=== PATIENT | male | born 1980 | race Caucasian/White ===

== ENCOUNTER 2023-04-19 01:34 | Inpatient (IN) | payer OTHER, SELFPAY ==
[2023-04-18 16:42] VITALS: BP 148/95
--- NOTE | 2023-04-18 22:03 | ED.GENMED ---
History of Present Illness
General
Chief Complaint: Nose Bleed
Source: patient
Exam Limitations: none
Time Seen by Provider: 04/18/23 22:01
Nursing documentation reviewed up to this point in time: agreed with
Travel History
Have you had any contact with someone who has COVID-19?: No
Do you have any symptoms of coronavirus? Fever > 100 degrees, chills, cough, shortness of breath, sore throat, loss of taste or smell, muscle aches, or headache?: No
History of Present Illness
History of Present Illness:
42-year-old male presents emergency department due to a nosebleed that started at 8 AM. He drinks a lot every day. He felt he was get a pass out when he was in a chair.
Past History
Past History
ED Past Medical History: None
ED Past Surgical History: Orthopedic (Left hand surgery, left ankle surgery)
Social History
Tobacco: Smoker
Alcohol: Chronic alcoholic
Drug: None
Living: with family
Employment: Employed
Review of Systems
Review of Systems
Allergies reviewed?: Yes
All Other Systems: Not applicable
Constitutional: Reports no symptoms
EENT: Reports other (nosebleed)
Respiratory: Reports no symptoms
Cardiac: Reports no symptoms
ABD/GI: Reports no symptoms
: Reports no symptoms
Musculoskeletal: Reports no symptoms
Skin: Reports no symptoms
Neurological: Reports dizzy
Endocrine: Reports no symptoms
Hematologic/Lymphatic: Reports no symptoms
Psychiatric: Reports no symptoms
Phy Exam
General Physical Exam
General Presentation: well appearing
ENT Exam
ENT Exam: other (bilateral hemorrhage)
Cardiovascular Exam
Cardiovascular Exam: regular rate/rhythm, no edema, no murmur and normal peripheral pulses
Pulmonary Exam
Pulmonary Exam: lungs clear and no crackles
Gastrointestinal Exam
Gastrointestinal Exam: non tender, soft and non distended
Neurological Exam
Neurological Exam: alert and oriented x3
Course
Orders/Labs/Results
Orders:
Orders
04/18/23 16:52
Electrocardiogram (*1) Urgent
Reason for Study: Palpitations
EKG- Treatment ONCE
04/18/23 22:27
IV Insert/Care/Rem.- Treatment PRN
04/18/23 22:34
Type+Screen Urgent
Alcohol Urgent
Complete Blood Count/With Diff Urgent
Comprehensive Metabolic Panel Urgent
PTT Urgent
Prothrombin Time Urgent
Abnormal Lab Results
04/18/23
22:34
WBC 11.7 H 10^3/uL
(4.8-10.8)
RBC 3.57 L 10^6/uL
(4.70-6.10)
Hct 36.4 L %
(39.0-52.0)
MCV 102.0 H fL
(80.0-94.0)
MCH 37.3 H pg
(27.0-31.0)
Abs Immat Gran (auto) 0.1 H 10^3/uL
(0-0.05)
Absolute Neuts (auto) 7.7 H 10^3/uL
(1.4-6.5)
Absolute Monos (auto) 0.8 H 10^3/uL
(0.1-0.6)
Sodium 132 L mmol/L
(135-145)
Carbon Dioxide 20 L mmol/L
(22-30)
Total Bilirubin 1.4 H mg/dl
(0.2-1.3)
AST 75 H U/L
(17-59)
ALT 60 H U/L
(0-50)
Alkaline Phosphatase 141 H U/L
(38-126)
04/18/23 22:34
04/18/23 22:34
Vital Signs
Initial and Last Documented VS:
Initial Vital Signs
Pulse Resp BP Pulse Ox
86 18 148/95 99
04/18/23 16:42 04/18/23 16:42 04/18/23 16:42 04/18/23 16:42
Last Documented Vital Signs
Pulse Resp BP Pulse Ox
86 18 148/95 99
04/18/23 16:42 04/18/23 16:42 04/18/23 16:42 04/18/23 16:42
Procedures
Nosebleed
Drug treatment: Lidocaine and Epinephrine
Treatment: Epistat nasal catheter
Post treatment bleeding: none- good control
MDM/Problems Addressed
Differential Diagnosis Includes:
near syncope, alcohol withdrawal, vomiting, epistaxis
MDM/Problems Addressed:
42 yo male with bilateral epistaxis, near syncope. EKG with PVCs, otherwise normal. hemorrhage controlled with bilateral packing. Admit for further evaluation
Chronic conditions affecting care: Other (alcoholism)
Acute Exacerbation and/or Progression of Chronic Illness: Other (alcoholism)
*Pulse Oximetry
Patient hypoxic: no
*EKG
Interpreted by ED Provider?: Yes
EKG Intrepretation Date: 04/18/23
EKG Intrepretation Time: 16:56
Interpretation: abnormal
Comparison EKG: no changes
Heart Rate: 77
Rate: normal
Rhythm: sinus and PVC's
Thomas: normal axis
Interval: normal interval
QRS Pattern: normal QRS
Ischemia: no ischemia
*Radio Repairman Interpretation
Rate: Radio Repairman- N/A
*Critical Care Note
Total Time (30-74mins, 75-104mins- exclusive of procedures): Not Applicable
Data Reviewed
Review of Other/Old Records Reveals: Labs
Source: records (prior labs show hb 15.5 03/15/23)
Patient Management
Social determinants of health affecting care: Living situation and Substance abuse
Discussion with other providers: Hospitalist and Analysis Evaluator (ENT Dr. Torres)
Escalation/DeEscalation of care consider admission/obs:
admit indicated
ED Attending Note
-
Portions of this chart may have been created with voice recognition software.� Occasional wrong word or��sound alike� substitutions may have occurred due to the inherent limitations of voice recognition software.
Discharge Plan
Departure
Patient Disposition: Admit
Date of Disposition: 04/18/23
Time of Disposition: 23:45
Admit to: Telemetry
Presentation/result/management discussed w/ accepting MD/DO: Hospitalist
Patient with high blood pressure during this ER visit?: Yes
Condition: Fair
Discharge Problem:
Epistaxis, Near syncope, Alcoholism
Prescriptions:
No Action
Fiber Gummies
2 gummy PO DAILYPRN PRN (Reason: fiber supplement)
Referrals:
Kaden Ramon MD [Family Provider] -
Interventions
Interventions:
*Risk Screen - Suicide Last Done: 04/18/23 20:08
*General Assessment Last Done: 04/18/23 20:08
*Neglect/Abuse Screening Last Done: 04/18/23 20:08
ED- Fall Risk Assessment Last Done: 04/18/23 20:08
ED-EENT Assessment Last Done: 04/18/23 20:08
[2023-04-18 22:39] LABS: % Basophils 0.6 % (0-2); % Eosinophils 0.8 % (0-6); % Immature Granulocytes 0.4 % (0-0.5); % Lymphocytes 25.7 % (20.5-51.1); % Monocytes 6.9 % (1.7-9.3); % Neutrophils 65.6 % (42.2-75.2); Absolute Basophils 0.1 10^3/uL (0-0.2); Absolute Eosinophils 0.1 10^3/uL (0-0.7); Absolute Immature Granulocytes 0.1 10^3/uL (0-0.05); Absolute Monocytes 0.8 10^3/uL (0.1-0.6); Absolute Neutrophils 7.7 10^3/uL (1.4-6.5); Hematocrit 36.4 % (39.0-52.0); Hemoglobin 13.3 g/dL (13.0-18.0); Mean Corp Hgb Conc. 36.5 g/dL (33.0-37.0); Mean Corpuscular Hgb 37.3 pg (27.0-31.0); Mean Platelet Volume 8.8 fL (7.4-10.4); Nucleated Red Blood Cells % 0 % (-); Platelet Count 223 10^3/uL (130-400); Red Blood Cell Count 3.57 10^6/uL (4.70-6.10); Red Cell Dist. Width 13.4 % (11.5-14.5); White Blood Cell Count 11.7 10^3/uL (4.8-10.8)
[2023-04-18 22:50] LABS: INR 1.04; PT 13.8 Sec (11.4-14.6)
[2023-04-18 22:51] LABS: APTT 27.9 Sec (23.4-35.0)
[2023-04-18 22:55] LABS: ALT (SGPT) 60 U/L (0-50); AST (SGOT) 75 U/L (17-59); Albumin 4.4 g/dl (3.5-5.0); Alkaline Phosphatase 141 U/L (38-126); Blood Urea Nitrogen 14 mg/dl (9-20); Calcium 9.2 mg/dl (8.4-10.2); Carbon Dioxide 20 mmol/L (22-30); Chloride 103 mmol/L (98-107); Glucose 77 mg/dl (70-99); Potassium 3.8 mmol/L (3.5-5.1); Sodium 132 mmol/L (135-145); Total Bilirubin 1.4 mg/dl (0.2-1.3); Total Protein 7.1 g/dl (6.3-8.2); eGFR > 60.00
[2023-04-18 22:58] LABS: Alcohol None Detected
[2023-04-19] VITALS (20 sets, daily range): BP systolic 118–176; BP diastolic 75–105; BMI 20.8; BMI 20.9
--- NOTE | 2023-04-19 01:05 | HPS.HSE ---
Family Physician
-
Family Physician: Kaden Ramon
Chief Complaint
-
Bloody nose
History of Present Illness
Patient is a 42y M with no significant PMH who presents to ED complaining of bloody nose. Patient states that he was getting a shower this evening when he had a paroxysm of cough and then 'threw up'. He states that this was bloody. He then
began to have bleeding from the nose - both sides - and was unable to stop / control the bleeding. Patient notes that he has had nose bleeds in the past - but it is not a frequent occurrence. He denies any recent trauma, injury, etc.
He presented to the ED for further evaluation and had nasal tamponade devices placed in each nostril. There is some residual oozing - specifically from the R nostril.
Patient denies any other source of bleeding.
He has no chest pain, abdominal pain, fevers / chills, etc.
Patient states that he drinks 'too much'. He states that he eason 4-6 drinks of hard liquor every day on average.
His last drink was a small sip this AM.
He also notes that he takes Advil 800mg tabs multiple times a day. He states that this is for chronic neck pain.
Medical History
Past Medical History
Past Medical History: Reports Other
Additional Past Medical History:
Alcohol Use Disorder
Chronic Cervical Pain
Past Surgical History: Reports Other
Additional Past Surgical History:
Left Wrist ORIF with Hardware
Social History
Tobacco: Smoker (Current every day smoker.)
Alcohol: Daily (4-6 hard alcohol drinks every day. Last drink 04/18 AM.)
Drug: Marijuana (Occasional)
Family History
Family History: Not pertinent
Allergies / Home Medications
Allergies reflects when Allergies were last updated in [employer].
Home Medications with original date entered in [employer]
Allergy/Medication List:
Allergies
Allergy/AdvReac Type Severity Reaction Status Date / Time
No Known Allergies Allergy Unverified 04/18/23 16:42
Home Medications
Fiber Gummies 2 gummy PO DAILYPRN PRN fiber supplement 03/15/23
Review of Systems
-
History Source: Patient
A 12 point ROS was completed and negative except as noted: Yes
Constitutional: Denies Fever or Chills
EENT: Denies Sore Throat
Respiratory: Reports Cough and Hemoptysis; Denies Trouble Breathing
Cardiac: Denies Chest Pain, Diaphoresis or Palpitations
Abdomen/GI: Reports Nausea and Vomiting; Denies Abdominal Pain, Bloody Stools or Black Stools
: Denies Dysuria or Frequency
Musculoskeletal: Denies Joint Pain, Joint Swelling or Edema
Neurological: Reports Dizzy; Denies Headache, Weakness or Numbness
Hematologic/Lymphatic: Reports Bleeding
Psych: Denies Depression or Anxiety
Physical Exam
Vital Signs
Vital Signs
Pulse Resp BP Pulse Ox
106 16 147/95 94
04/19/23 00:12 04/19/23 00:12 04/19/23 00:12 04/19/23 00:12
Physical Exam
General: Other (42y M in mild distress due to nasal packing discomfort.)
HEENT: Other (Bilateral nostrils with tamponade devices in place. Some blood trickling from the R nostril anteriorly. Posterior oropharyngeal blood - but does not appear to be actively bleeding.)
Respiratory: Clear; No Wheezes, Rales or Rhonchi
Cardiac: S1/S2 and Regular Rhythm; No Murmur
GI: Soft, Non Tender, Non Distended and Normal Bowel Sounds
Musculoskeletal: No Clubbing, No Cyanosis and No Edema
Neuro: AO x 3
Laboratory Results
-
04/18/23 22:34
04/18/23 22:34
Laboratory Results
PT 13.8 Sec (11.4-14.6) 04/18/23 22:34
INR 1.04 04/18/23 22:34
APTT 27.9 Sec (23.4-35.0) 04/18/23:34
Total Bilirubin 1.4 mg/dl (0.2-1.3) H 04/18/23 22:34
AST 75 U/L (17-59) H 04/18/23 22:34
ALT 60 U/L (0-50) H 04/18/23 22:34
Alkaline Phosphatase 141 U/L (38-126) H 04/18/23 22:34
Impression/Plan
-
A/P: Patient is a 42y M with PMH significant for alcohol use disorder who presents to ED for evaluation of nose bleed.
Severe Epistaxis - Bilateral
- Admit for further evaluation and treatment. Keep on monitored bed for the night.
- Maintain nasal packing overnight.
- Application of ice / cold to area.
- Follow for any significant breakthrough bleeding.
- Adjust air in balloon devices if needed to maintain hemostasis.
- ENT evaluation in the AM for additional evaluation / possible endoscopic exam and cautery.
- Empiric abx coverage for now / while packing in place.
- No lab evidence of coagulopathy - though suspect some degree of platelet dysfunction on basis of chronic alcoholism.
- Monitor for any other sources of bleeding.
- Follow H&H for any changes.
Alcohol Use Disorder
- Last drink was early this AM. Current alcohol level is 0.
- Will monitor on MSAS protocol, but seems very low risk for development of withdrawal symptoms.
DVT Prophylaxis: SCDs
Code Status: Full
[2023-04-19] MEDS: NSS 1000 IV ×3 (02:21→20:04)
[2023-04-19] MEDS: UNASYN IV ×4 (03:29→20:46)
[2023-04-19] MEDS: PROTONIX 250 IV (03:34)
[2023-04-19 06:17] LABS: Hematocrit 32.2 % (39.0-52.0); Hemoglobin 11.4 g/dL (13.0-18.0); Mean Corp Hgb Conc. 35.4 g/dL (33.0-37.0); Mean Corpuscular Hgb 37.7 pg (27.0-31.0); Mean Corpuscular Volume 106.6 fL (80.0-94.0); Mean Platelet Volume 9.2 fL (7.4-10.4); Platelet Count 181 10^3/uL (130-400); Red Blood Cell Count 3.02 10^6/uL (4.70-6.10); Red Cell Dist. Width 13.2 % (11.5-14.5); White Blood Cell Count 8.8 10^3/uL (4.8-10.8)
[2023-04-19 06:32] LABS: Blood Urea Nitrogen 18 mg/dl (9-20); Calcium 8.6 mg/dl (8.4-10.2); Carbon Dioxide 21 mmol/L (22-30); Chloride 104 mmol/L (98-107); Estimated Creatinine Clearance > 125 ml/min; Glucose 73 mg/dl (70-99); Potassium 3.7 mmol/L (3.5-5.1); Sodium 133 mmol/L (135-145); eGFR > 60.00
[2023-04-19] MEDS: THIAMINE INJECTION 200 MG IV ×2 (08:34→20:04)
[2023-04-19] MEDS: FOLVITE 1 MG PO (08:57)
--- NOTE | 2023-04-19 11:14 | W.PN.HOSP.TC ---
Assessment / Plan
Assessment / Plan
42y M with PMH significant for alcohol use disorder who presents to ED for evaluation of nose bleed.
1. Severe Epistaxis - Bilateral
�- Admit for further evaluation and treatment.� Keep on monitored bed for the night.
�- Maintain nasal packing overnight.
�- Application of ice / cold to area.
�- Follow for any significant breakthrough bleeding.
�- Adjust air in balloon devices if needed to maintain hemostasis.
�- ENT evaluation in the AM for additional evaluation / possible endoscopic exam and cautery.
�- Empiric abx coverage for now / while packing in place.
�- No lab evidence of coagulopathy - though suspect some degree of platelet dysfunction on basis of chronic alcoholism.
�- Monitor for any other sources of bleeding.
�- Follow H&H for any changes.
Alcohol Use Disorder
�- Last drink was early this AM.� Current alcohol level is 0.
�- Will monitor on MSAS protocol, but seems very low risk for development of withdrawal symptoms.
DVT Prophylaxis:� SCDs
Code Status:� Full
Subjective/Interval History
-
Date of Service: April 19, 2023
Objective Data
-
Labs:
Laboratory Results
04/19/23 04/19/23 04/19/23
01:49 02:08 06:10
WBC 8.8
Hgb Cancelled 12.0 L 11.4 L
Hct Cancelled 34.0 L 32.2 L
Plt Count 181
Sodium 133 L
Potassium 3.7
Chloride 104
Carbon Dioxide 21 L
BUN 18
Creatinine 0.6 L
Glucose 73
Calcium 8.6
04/19/23 04/19/23 04/19/23
08:00 11:12 20:00
WBC
Hgb Pending Pending Pending
Hct Pending Pending Pending
Plt Count
Sodium
Potassium
Chloride
Carbon Dioxide
BUN
Creatinine
Glucose
Calcium
Vital Signs:
Vital Signs
Pulse Resp BP Pulse Ox
94 20 149/105 98
04/19/23 10:00 04/19/23 08:30 04/19/23 10:00 04/19/23 10:00
[2023-04-19] MEDS: DILAUDID 0.5 MG IV ×2 (11:22→16:48)
[2023-04-19 11:32] LABS: Hematocrit 31.5 % (39.0-52.0); Hemoglobin 11.4 g/dL (13.0-18.0)
--- NOTE | 2023-04-19 11:54 | CON.MD ---
Consultation - Medical
-
Patient patient seen and evaluated at the bedside.
Full consult dictated.
A/Q-9-yapf-old male with epistaxis.
-Patient with spontaneous epistaxis yesterday after sneezing.
-Unable to stop at home.
-No previous history of epistaxis.
-Packed in ER with balloons bilaterally.
-Bleeding seems controlled now.
-Would recommend continuing packing for 24 hours.
-Plan on removing packing tomorrow in a.m.
-Can give patient pain medicine for comfort as needed.
-Call if bleeding worsens.
--- NOTE | 2023-04-19 12:13 | CON.GI ---
Consultation
-
Date/Time Consultation Requested: 04/19/2022
Date/Time Consultation Performed: 04/19/2022
Performing Provider: Sandor Reyes
Reason for Consultation: possible GI bleed
Medical History
Chief Complaint / HPI
Chief Complaint: possible GI bleed
History of Present Illness:
Patient is a 42-year-old male with no significant medical history presents with epistaxis. He reports that he sneezed and vomited almost at the same time which contained significant mount of blood. After sneezing he started having nosebleed as
well. After arriving to ER he also had melena. Never had similar symptoms before. He does drink significantly, about 2 large alcoholic drink daily. He also has been taking NSAID medication for his neck pain daily. Never had Endo eval before.
He denies abdominal pain currently.
Past Medical History
Past Medical History: Other
Past Surgical History: Other
Social History
Tobacco: Smoker
Alcohol: Daily
Allergies / Home Medications
Allergy/AdvReac Type Severity Reaction Status Date / Time
No Known Allergies Allergy Unverified 04/18/23 16:42
Medication Instructions Recorded
Fiber Gummies 2 gummy PO DAILYPRN PRN fiber 03/15/23
supplement
Review of Systems
Vital Signs
Pulse Resp BP Pulse Ox
90 20 154/91 98
04/19/23 11:15 04/19/23 08:30 04/19/23 11:00 04/19/23 11:15
Physical Exam
Exam
General: Well Developed and Well Nourished
HEENT: Normocephalic
Respiratory: Clear
Cardiac: S1/S2
GI: Soft, Non Tender, Non Distended and Normal Bowel Sounds
Results
WBC 8.8 10^3/uL (4.8-10.8) 04/19/23 06:10
Hgb 11.4 g/dL (13.0-18.0) L 04/19/23 11:12
Hct 31.5 % (39.0-52.0) L 04/19/23 11:12
MCV 106.6 fL (80.0-94.0) H 04/19/23 06:10
Plt Count 181 10^3/uL (130-400) 04/19/23 06:10
Absolute Neuts (auto) 7.7 10^3/uL (1.4-6.5) H 04/18/23 22:34
PT 13.8 Sec (11.4-14.6) 04/18/23 22:34
INR 1.04 04/18/23 22:34
APTT 27.9 Sec (23.4-35.0) 04/18/23 22:34
Sodium 133 mmol/L (135-145) L 04/19/23 06:10
Potassium 3.7 mmol/L (3.5-5.1) 04/19/23 06:10
Chloride 104 mmol/L (98-107) 04/19/23 06:10
Carbon Dioxide 21 mmol/L (22-30) L 04/19/23 06:10
BUN 18 mg/dl (9-20) 04/19/23 06:10
Creatinine 0.6 mg/dL (0.7-1.3) L 04/19/23 06:10
Calcium 8.6 mg/dl (8.4-10.2) 04/19/23 06:10
Total Bilirubin 1.4 mg/dl (0.2-1.3) H 04/18/23 22:34
AST 75 U/L (17-59) H 04/18/23 22:34
ALT 60 U/L (0-50) H 04/18/23 22:34
Alkaline Phosphatase 141 U/L (38-126) H 04/18/23 22:34
Diagnostic Image Results:
Prior GI Procedures:
EGD:
Colonoscopy:
Assessment / Plan
-
Patient is a 42-year-old male with no significant medical history except for alcohol use who presents with epistaxis and also possible upper GI bleed.
Impression / Rec:
1. Possible UGIB - Patient's history is unclear as she reports that his bleeding started when he sneezed and vomited almost at the same time. She reports vomiting bloody content. He also reports melena in ER. He does have significant risk factor
for upper GI bleed including alcohol abuse and daily NSAID use. He is hemodynamically stable and Hgb remains stable (13.3 on admission and 11.4 for last 6 hours). Currently on PPI infusion. Will plan for Endo eval tomorrow. N.p.o. after midnight.
Total Time Spent with Patient (in minutes): 55
-
-
Thank you for consultation and allowing me to participate in the patient's care. Please call the external relations director GI physician during the after hours with any questions or concerns.
[2023-04-19] MEDS: TYLENOL 650 MG PO (14:26)
--- NOTE | 2023-04-19 16:03 | W.PN.HOSP.TC ---
Today's Communication/Plan
-
NPO after MN
See notes from ENT and GI
Assessment / Plan
Assessment / Plan
42y M with PMH significant for alcohol use disorder who presents to ED for evaluation of nose bleed.
1. Severe Epistaxis - Bilateral
� - Maintain nasal packing
� - Application of ice / cold to area.
� - Follow for any significant breakthrough bleeding.
� - Adjust air in balloon devices if needed to maintain hemostasis.
� - ENT evaluation with / possible endoscopic exam and cautery. ENT recommended:
'Would recommend continuing packing for [another] 24 hours.
-Plan on removing packing tomorrow in a.m.
-Can give patient pain medicine for comfort as needed.
-Call if bleeding worsens.'
� - Empiric abx coverage for now / while packing in place.
�- No lab evidence of coagulopathy - though suspect some degree of platelet dysfunction on basis of chronic alcoholism.
� - Monitor for any other sources of bleeding.
� - Follow H&H for any changes.
2. Alcohol Use Disorder
�- Last drink was early this AM.� Current alcohol level is 0.
� - Will monitor on MSAS protocol, but seems very low risk for development of withdrawal symptoms.
3. Possible UGIB. Pt seen by GI. GI states:
'- Patient's history is unclear as she reports that his bleeding started when he sneezed and vomited almost at the same time.�
He reports vomiting bloody content.� He also reports melena in ER.� He does have significant risk factor for upper GI bleed including alcohol abuse and daily NSAID use.�
He is hemodynamically stable and Hgb remains stable (13.3 on admission and 11.4 for last 6 hours).� Currently on PPI infusion.�
Will plan for Endo eval tomorrow.� N.p.o. after midnight.'
DVT Prophylaxis:� SCDs
Code Status:� Full
Anticipated Discharge: 24 - 48 hours
Subjective/Interval History
-
Date of Service: April 19, 2023
Patient states his nose feels more swollen and is still 'wet.'
Objective Data
-
Labs:
Laboratory Results
04/19/23 04/19/23 04/19/23
06:10 08:00 11:12
WBC 8.8
Hgb 11.4 L Cancelled 11.4 L
Hct 32.2 L Cancelled 31.5 L
Plt Count 181
Sodium 133 L
Potassium 3.7
Chloride 104
Carbon Dioxide 21 L
BUN 18
Creatinine 0.6 L
Glucose 73
Calcium 8.6
Vital Signs:
Vital Signs
Temp Pulse Resp BP Pulse Ox
98.7 F 81 18 155/90 99
04/19/23 13:50 04/19/23 15:41 04/19/23 13:50 04/19/23 15:41 04/19/23 13:50
Review of Systems
-
History Source: Patient
All other systems: Reviewed and negative
Physical Exam
-
General: Well Developed, Well Nourished, No Apparent Distress and Pain
HEENT: Ears Appear Normal
Respiratory: Clear to Auscultation
Cardiac: Regular Rhythm and S1/S2
GI: Soft, Nontender and Nondistended
Musculoskeletal: No Clubbing, No Cyanosis and No Edema
Skin: Warm and Dry; Negative Rash
Neuro: Awake, Alert, Oriented and AO x 3
Psych: Calm
Data Reviewed
-
Labs: Labs Reviewed by me
--- NOTE | 2023-04-19 16:07 | PTCARENOTE ---
Dr. Tomas made aware pt. HR increased to 150s-160s when ambulating to the bathroom and pt. with c/o feeling bleeding dripping in his throat. This nurse offered zofran to pt. for c/o nausea, pt. refused at this time. Will continue to monitor.
[2023-04-19] MEDS: NSS IV (16:52)
--- NOTE | 2023-04-19 16:52 | PTCARENOTE ---
Pt. c/o pain at this time. Pain medication given as ordered. Pt. resting in bed at this time, HR 102, b/p 152/98. Dr. Iverson made aware. No new orders at this time. Will continue to monitor and report on pt.
--- NOTE | 2023-04-19 18:45 | PTCARENOTE ---
Dr. Guevara made aware pt. is wiping nose with a ni for bright red blood and sitting on the side of the bed pt. HR in the 150s. This nurse confirmed with Dr. Guevara IMU order.
--- NOTE | 2023-04-19 19:00 | PTCARENOTE ---
Pt. updated with plan to be transferred to IMU. Pt. resting in bed comfortably at this time.
--- NOTE | 2023-04-19 19:10 | PTCARENOTE ---
Report called to IMU RNMimi.
--- NOTE | 2023-04-19 19:50 | PTCARENOTE ---
Received pt as a transfer from 4th floor. Pt AAOx3; c/o pain in nose with some post nasal drip. Still actively bleeding from nose. On a CLD until midnight for endoscopy in the AM. Dark green/black foamy stool. Heme test positive. No c/o nausea
or vomiting at this time. BP 147/97 HR 110 at rest and increases to 150s-170s when ambulatory. Pt resting comfortably in bed with callbell in reach.
[2023-04-19 21:08] LABS: Hematocrit 27.9 % (39.0-52.0); Hemoglobin 10.1 g/dL (13.0-18.0)
[2023-04-20] VITALS (16 sets, daily range): BP systolic 18–166; BP diastolic 70–99
[2023-04-20] MEDS: UNASYN IV ×4 (03:03→19:59)
[2023-04-20] MEDS: NSS 1000 IV ×3 (03:03→17:46)
[2023-04-20 04:04] LABS: Hematocrit 24.2 % (39.0-52.0); Hemoglobin 8.7 g/dL (13.0-18.0)
[2023-04-20] MEDS: PROTONIX 250 IV (04:43)
[2023-04-20] MEDS: FOLVITE 1 MG PO (08:45)
[2023-04-20] MEDS: THIAMINE INJECTION 200 MG IV ×2 (08:45→19:58)
[2023-04-20 09:31] LABS: Hematocrit 21.1 % (39.0-52.0); Hemoglobin 7.6 g/dL (13.0-18.0)
[2023-04-20 09:52] LABS: ALT (SGPT) 26 U/L (0-50); AST (SGOT) 28 U/L (17-59); Albumin 2.9 g/dl (3.5-5.0); Alkaline Phosphatase 79 U/L (38-126); Blood Urea Nitrogen 27 mg/dl (9-20); Calcium 7.9 mg/dl (8.4-10.2); Carbon Dioxide 24 mmol/L (22-30); Chloride 107 mmol/L (98-107); Estimated Creatinine Clearance > 125 ml/min; Glucose 96 mg/dl (70-99); Potassium 3.5 mmol/L (3.5-5.1); Sodium 133 mmol/L (135-145); Total Protein 5.1 g/dl (6.3-8.2); eGFR > 60.00
[2023-04-20] MEDS: PROTONIX 40 MG PO (11:54)
--- NOTE | 2023-04-20 13:01 | W.PN.HOSP.TC ---
Addendum entered and electronically signed by Yared Agarwal MD 04/20/23 15:04:
drinks fireball shots/rum-drinks everyday-not been sober for long time.
updated spouse over the phone in details.
Original Note:
Today's Communication/Plan
-
PPI p.o.
IV antibiotic
Monitor heart rate
Beta-rosendo
Assessment / Plan
Assessment / Plan
42y M with PMH significant for alcohol use disorder who presents to ED for evaluation of nose bleed.
Severe Epistaxis - Bilateral
-Maintain nasal packing
-Application of ice / cold to area.
-Follow for any significant breakthrough bleeding.
-Adjust air in balloon devices if needed to maintain hemostasis.
-ENT evaluation with / possible endoscopic exam and cautery. ENT recommended:
- Empiric abx coverage for now / while packing in place.
-No lab evidence of coagulopathy - though suspect some degree of platelet dysfunction on basis of chronic alcoholism.
-Monitor for any other sources of bleeding.
-Follow H&H for any changes.
Alcohol Use Disorder
Transaminitis secondary to above-resolved
- Last drink was GLUE SPRAYER.
- Will monitor on MSAS protocol
Probably aspirated blood from epistaxis
-He reports vomiting bloody content. He also reports melena in ER. He does have significant risk factor for upper GI bleed including alcohol abuse and daily NSAID use.
-trend h.h. s/p PPI infusion.
-s/p EGD with Small superficial esophageal ulcer-doubt it is source of bleeding per GI
-ppi daily
-started on diet
-Sinus tachycardia likely multifactorial in the setting of blood loss anemia from recent access versus alcohol use disorder, dehydration
-Continue aggressive IV fluid resuscitation
-Trial low-dose Lopressor
Acute blood loss anemia multifactorial
-Transfuse as needed for less than 7 hemoglobin
DVT Prophylaxis: SCDs
Code Status: Full
If heart rate improves transfer to telemetry
Anticipated Discharge: 24 - 48 hours
Subjective/Interval History
-
Date of Service: April 20, 2023
states of intermittent mild epitaxis
remains sinus tach
Objective Data
-
Labs:
Laboratory Results
04/20/23 04/20/23
03:11 09:19
Hgb 8.7 L 7.6 L
Hct 24.2 L 21.1 L
Sodium 133 L
Potassium 3.5
Chloride 107
Carbon Dioxide 24
BUN 27 H
Creatinine 0.5 L
Glucose 96
Calcium 7.9 L
Total Bilirubin 1.0
AST 28
ALT 26
Alkaline Phosphatase 79
Vital Signs:
Vital Signs
Temp Pulse Resp BP Pulse Ox
98.9 F 120 16 123/89 99
04/20/23 11:00 04/20/23 12:00 04/20/23 12:00 04/20/23 12:00 04/20/23 12:00
I&O
04/19/23 04/20/23 04/21/23
06:59 06:59 06:59
Intake Total 1110 / 1110
Balance 1110 / 1110
Physical Exam
-
General: Well Developed, Well Nourished, No Apparent Distress and Pain
HEENT: Ears Appear Normal
Respiratory: Clear to Auscultation
Cardiac: Regular Rhythm, S1/S2 and Tachycardic
GI: Soft, Nontender and Nondistended
Musculoskeletal: No Clubbing, No Cyanosis and No Edema
Skin: Warm and Dry; Negative Rash
Neuro: Awake, Alert, Oriented and AO x 3
Psych: Calm
Data Reviewed
-
Total Time Spent with Patient (in minutes): 54
[2023-04-20] MEDS: LOPRESSOR 12.5 MG PO (13:30)
--- NOTE | 2023-04-20 13:51 | PTCARENOTE ---
Pt presents as assessed. Aox3, flat. ST with resting HR from 100-120's. On exertion HR reaching as high as 170's. TT to Dr. Agarwal, EKG obtained. Pt asymptomatic. MSAS completed per protocol- see intervention. To and from GI lab via stretcher. Diet
ordered upon return, pt tolerating well at this time. at bedside, updated on plan of care. Pt ringing appropriately, call starr within reach.
--- NOTE | 2023-04-20 14:56 | PN.CDI ---
CDI
- -
CDI:
Physician Documentation Request
Admit Date: 04/19/23 01:34
Dear Doctor Stefano,
Patient admitted with epistaxis.
Laboratory Tests
04/18/23 04/19/23 04/20/23
22:34 06:10 09:19
Sodium 132 L 133 L 133 L
Based on the above, could you clarify in the progress notes, the appropriate diagnosis, if significant, that supports the above abnormalities and additional evaluation, monitoring and/or treatment rendered:
Hyponatremia
Abnormal lab value insignificant
Other
Use of terms such as suspected, likely, concern for, or probable (associated with a specific diagnosis that is being evaluated, monitored, or treated as if it exists) are acceptable and can be coded in the inpatient setting, when documented at the
time of discharge.
Thank you,
Joy Sierra RN, BSN
CDI Specialist
Available via [employer] text
Please use your independent medical judgment in providing your response.
[2023-04-20 14:58] LABS: Hematocrit 21.7 % (39.0-52.0); Hemoglobin 7.7 g/dL (13.0-18.0)
[2023-04-20] MEDS: ATIVAN 0.5 MG PO (15:25)
--- NOTE | 2023-04-20 16:17 | PTCARENOTE ---
Pt c/o anxiety. MSAS as documented- not scoring high enough for IV Ativan. TT to Dr. Agarwal, order received for one time dose of PO Ativan. Administered as ordered, see MAR. Pt sleeping at this time.
--- NOTE | 2023-04-20 16:50 | CM ---
Patient with Dx Severe Epistaxis, Alcohol Use Disorder, Sinus tachycardia, Acute blood loss anemia. Nasal packing. MSAS. IVF. Receiving IV Unasyn, IV Thiamine. Per nurse assessment; ambulatory in room.
Met with patient who resides with his PALOMO Trevizo in a 2 story house.
The patient has been independent in ADLs and ambulation.
The patient has no DME or prior VN.
PCP - Kaden Ramon
Pharmacy - [facility]
CM Consult:
Substance abuse
Offered [facility] for Etoh program/resources and patient declined, saying this hospital stay was enough to help him decide not to drink. He said his friends/family will help him with this.
No CM d/c needs identified.
Plan home.
--- NOTE | 2023-04-20 18:06 | PTCARENOTE ---
Pt states his sister texted him to remind him that he was hospitalized in the past for ITP. Dr. Agarwal notified via TT.
--- NOTE | 2023-04-20 19:41 | W.PN.ENT ---
Today's Communication
-
Surgifoam soaked in epinephrine placed bilaterally. Start Afrin nasal spray nasal saline. If patient is stable may be able to be discharged tomorrow.
Impression / Plan
-
42-year-old male with epistaxis.
-Balloon packing removed from the nasal cavity bilaterally.
-Still some oozing.
-Surgifoam soaked in epinephrine was placed bilaterally within nasal cavity.
-Start Afrin nasal spray 3 times a day for 3 days.
-Patient should use nasal saline throughout the day as well.
-Continue medical treatment as per hospitalist.
-If patient is medically stable he can likely be discharged home tomorrow.
Subjective Data
-
Patient with packing in nose.
No significant bleeding.
Denies any blood in throat.
Patient had EGD today.
Objective Data
-
Vital Signs
Temp Pulse Resp BP Pulse Ox
98.3 F 114 21 115/74 99
04/20/23 15:20 04/20/23 18:00 04/20/23 18:00 04/20/23 18:00 04/20/23 12:00
Intake & Output
04/19/23 04/20/23 04/21/23
06:59 06:59 06:59
Intake:
Oral fluids 240 / 240
IV fluids (Total) 750 / 750
IV piggybacks 120 / 120
Other:
Number of approximated MODERATE 2
amounts of urine
Number of approximated LARGE 1
amounts of urine
Lab Results
04/20/23 20:30
04/20/23 09:19
PT 13.8 Sec (11.4-14.6) 04/18/23 22:34
INR 1.04 04/18/23 22:34
APTT 27.9 Sec (23.4-35.0) 04/18/23 22:34
Calcium 7.9 mg/dl (8.4-10.2) L 04/20/23 09:19
Total Bilirubin 1.0 mg/dl (0.2-1.3) 04/20/23 09:19
AST 28 U/L (17-59) 04/20/23 09:19
ALT 26 U/L (0-50) 04/20/23 09:19
Alkaline Phosphatase 79 U/L (38-126) 04/20/23 09:19
Physical Exam
-
Awake, alert, oriented in no acute distress.
Balloon packing removed from nose bilaterally.
Moderate oozing noted right greater than left.
Pressure held for 30 minutes.
Patient still with some minimal oozing.
No suction cleaned.
Significant mucosal maceration and dryness with crusting noted bilaterally.
Surgifoam soaked in epinephrine placed bilaterally. No significant oozing noted at this point in time.
Oral cavity and oropharynx were clear.
Neck soft and supple.
[2023-04-20] MEDS: OCEAN, SALINE MIST NASAL (22:33)
[2023-04-20] MEDS: AFRIN NASAL SPRAY 2 SPRAYS NASAL (22:33)
[2023-04-21] VITALS (17 sets, daily range): BP systolic 99–127; BP diastolic 61–88
[2023-04-21] MEDS: UNASYN IV ×4 (03:03→20:27)
[2023-04-21 03:30] LABS: Mean Corp Hgb Conc. 36.6 g/dL (33.0-37.0); Mean Corpuscular Hgb 38.9 pg (27.0-31.0); Mean Corpuscular Volume 106.3 fL (80.0-94.0); Platelet Count 147 10^3/uL (130-400); Red Blood Cell Count 1.75 10^6/uL (4.70-6.10); Red Cell Dist. Width 13.2 % (11.5-14.5); White Blood Cell Count 9.1 10^3/uL (4.8-10.8)
[2023-04-21 03:43] LABS: Hematocrit 18.6 % (39.0-52.0); Hemoglobin 6.8 g/dL (13.0-18.0)
--- NOTE | 2023-04-21 04:14 | W.PN.UPDATE ---
Update Note
Progress Note Update
Morning labs: Hgb 6.8/Hct 18.6
Patient admitted 04/19/2023 with Severe Epistaxis, Hgb 13.3/Hct 36.4 at arrival has been trending down since. Morning results noted above. Patient is AAox3 able to make his own decisions. Reviewed with patient need for transfusion of blood products,
the pros and cons and alternatives treatments. He was able to verbalize understanding. Reviewed the risks alternative and possible complications to transfusion with patient and he consented to receive blood products as clinically necessary.
Order placed for 1 unit PRBCs.
--- NOTE | 2023-04-21 04:25 | PTCARENOTE ---
Pt hgb dropped to 6.8. Pt offers no complaints. BP 111/71 HR 92. Nose has been lightly bleeding throughout the night. Stool still appears liquid and dark in color x4 BMs throughout this shift. Notified SPA DIRECTOR. Blood consent obtained by SPA DIRECTOR. 1
unit PRBCs ordered.
[2023-04-21 04:29] LABS: ALT (SGPT) 27 U/L (0-50); AST (SGOT) 43 U/L (17-59); Albumin 2.8 g/dl (3.5-5.0); Alkaline Phosphatase 91 U/L (38-126); Blood Urea Nitrogen 12 mg/dl (9-20); Carbon Dioxide 23 mmol/L (22-30); Chloride 108 mmol/L (98-107); Estimated Creatinine Clearance > 125 ml/min; Glucose 92 mg/dl (70-99); Potassium 3.2 mmol/L (3.5-5.1); Sodium 133 mmol/L (135-145); Total Bilirubin 0.5 mg/dl (0.2-1.3); Total Protein 5.1 g/dl (6.3-8.2); eGFR > 60.00
[2023-04-21] MEDS: NSS 1000 IV (05:33)
[2023-04-21] MEDS: NSS IV (05:37)
[2023-04-21] MEDS: THIAMINE INJECTION 200 MG IV ×2 (07:50→20:27)
[2023-04-21] MEDS: PROTONIX 40 MG PO (07:52)
[2023-04-21] MEDS: FOLVITE 1 MG PO (07:52)
[2023-04-21] MEDS: AFRIN NASAL SPRAY 4 SPRAYS NASAL (07:52)
[2023-04-21] MEDS: OCEAN, SALINE MIST 2 SPRAYS NASAL ×3 (07:53→17:54)
[2023-04-21 09:27] LABS: Iron 36 ug/dl (49-181)
[2023-04-21 09:36] LABS: Percent Saturation 14 % (20-50); Total Iron Binding Capacity 245 ug/dl (261-462)
[2023-04-21] MEDS: KCL 40 MEQ PO (10:08)
[2023-04-21 11:40] LABS: Hematocrit 23.8 % (39.0-52.0)
[2023-04-21 11:48] LABS: Hemoglobin 8.3 g/dL (13.0-18.0)
[2023-04-21 13:28] LABS: Folate 7.4 ng/ml (2.76-20); Vitamin B12 318 pg/ml (239-931)
--- NOTE | 2023-04-21 13:40 | PTCARENOTE ---
Pt presents as assessed. Aox3, flat. HR improved. Unit of blood completed and repeat hgb sent. Pt tolerating diet well at this time. Multiple liquid bowel movements on commode- dark in color. MSAS continued per protocol. Pt ringing appropriately,
call starr within reach.
--- NOTE | 2023-04-21 14:19 | W.PN.HOSP.TC ---
Today's Communication/Plan
-
tx to tele
trend h/h
ent recs
abx
start iv iron/po b12
Assessment / Plan
Assessment / Plan
42y M with PMH significant for alcohol use disorder who presents to ED for evaluation of nose bleed.
Severe Epistaxis - Bilateral
Acute blood loss anemia 2/2 above
-Application of ice / cold to area.
-Follow for any significant breakthrough bleeding.
-s/p removal of balloon packing. surgifoam with epi packing. started on nasal afrin and saline spray per ENT
- Empiric abx coverage for now / while packing in place.
-No lab evidence of coagulopathy - though suspect some degree of platelet dysfunction on basis of chronic alcoholism.
-Low iron and [id number] IV iron and po supplements. s/p 1U PRBC.
-Follow H&H for any changes.
Daily Alcohol Use Disorder
Transaminitis secondary to above-resolved
- Last drink was [employer].
- Will monitor on MSAS protocol
Probably aspirated blood from epistaxis
-He reports vomiting bloody content. He also reports melena in ER. He does have significant risk factor for upper GI bleed including alcohol abuse and daily NSAID use.
-trend h.h. s/p PPI infusion.
-s/p EGD with Small superficial esophageal ulcer-doubt it is source of bleeding per GI
-ppi daily
-started on diet
-Sinus tachycardia likely multifactorial in the setting of blood loss anemia from recent access versus alcohol use disorder, dehydration
-DC IVF and encourage po intake.
-Trial low-dose Lopressor. hold further standing dose now
Acute blood loss anemia multifactorial
-Transfuse as needed for less than 7 hemoglobin
hyponatremia
monitor.
DVT Prophylaxis: SCDs
Code Status: Full
updated spouse on 04/20.
Anticipated Discharge: Within 24 hours
Subjective/Interval History
-
Date of Service: April 21, 2023
States this time had the most severe epistaxis
States of feeling better
Denies abdominal pain nausea vomiting
Tolerating diet
Objective Data
-
Labs:
Laboratory Results
04/21/23 04/21/23
03:10 11:30
WBC 9.1
Hgb 6.8 L* 8.3 L D
Hct 18.6 L* 23.8 L
Plt Count 147
Sodium 133 L
Potassium 3.2 L
Chloride 108 H
Carbon Dioxide 23
BUN 12
Creatinine 0.5 L
Glucose 92
Calcium 8.0 L
Total Bilirubin 0.5
AST 43
ALT 27
Alkaline Phosphatase 91
Vital Signs:
Vital Signs
Temp Pulse Resp BP Pulse Ox
98.6 F 99 19 117/86 100
04/21/23 11:55 04/21/23 12:00 04/21/23 12:00 04/21/23 12:00 04/21/23 12:00
I&O
04/20/23 04/21/23 04/22/23
06:59 06:59 06:59
Intake Total 1110 / 1110 0 / 0 250 / 250
Balance 1110 / 1110 0 / 0 250 / 250
Physical Exam
-
General: Well Developed, Well Nourished, No Apparent Distress and Pain
HEENT: Ears Appear Normal
Respiratory: Clear to Auscultation
Cardiac: Regular Rhythm and S1/S2
GI: Soft, Nontender and Nondistended
Musculoskeletal: No Clubbing, No Cyanosis and No Edema
Skin: Warm and Dry; Negative Rash
Neuro: Awake, Alert, Oriented and AO x 3
Psych: Calm
[2023-04-21] MEDS: FERRLECIT 110 MG IV (14:56)
[2023-04-21] MEDS: VITAMIN B-12 1000 MCG PO (15:00)
[2023-04-21] MEDS: AFRIN NASAL SPRAY 2 SPRAYS NASAL (17:54)
--- NOTE | 2023-04-21 17:57 | W.PN.ENT ---
Today's Communication
-
Continue Afrin and nasal saline.
Follow-up as outpatient.
Impression / Plan
-
42-year-old male with epistaxis.
-Balloon packing removed from the nasal cavity bilaterally.
-Now with Surgifoam in nasal cavity bilaterally.
-Surgifoam will dissolve over time.
-Continue Afrin nasal spray for total of 3 days.
-Continue nasal saline spray.
-Patient with decrease in H&H noted.
-I do not think that this significant drop in hemoglobin and hematocrit could be caused by his nosebleeds.
-Patient with no previous history of nosebleed prior to Thursday.
-Patient can follow-up with me as an outpatient.
Subjective Data
-
Packing removed last evening.
Patient did well overnight.
Minimal bloody mucus from nose but no significant episodes of epistaxis.
Has been using Afrin and saline as prescribed.
Tolerating p.o. diet without difficulty.
Patient did have drop in H&H, transfused 1 unit of blood.
Objective Data
-
Vital Signs
Temp Pulse Resp BP Pulse Ox
98.6 F 97 17 111/80 99
04/21/23 11:55 04/21/23 16:00 04/21/23 16:00 04/21/23 16:00 04/21/23 16:00
Intake & Output
04/20/23 04/21/23 04/22/23
06:59 06:59 06:59
Intake:
Oral fluids 240 / 240
IV fluids (Total) 750 / 750
IV piggybacks 120 / 120
Blood Product Amount Infused ( 0 / 0 250 / 250
mL)
Packed Rbc Leukoreduced Unit 0 / 0 250 / 250
[id number]
Other:
Number of approximated MODERATE 2
amounts of urine
Number of approximated LARGE 1
amounts of urine
Lab Results
04/21/23 11:30
04/21/23 03:10
PT 13.8 Sec (11.4-14.6) 04/18/23 22:34
INR 1.04 04/18/23 22:34
APTT 27.9 Sec (23.4-35.0) 04/18/23 22:34
Calcium 8.0 mg/dl (8.4-10.2) L 04/21/23 03:10
Total Bilirubin 0.5 mg/dl (0.2-1.3) 04/21/23 03:10
AST 43 U/L (17-59) 04/21/23 03:10
ALT 27 U/L (0-50) 04/21/23 03:10
Alkaline Phosphatase 91 U/L (38-126) 04/21/23 03:10
Physical Exam
-
Awake, alert, oriented, in no acute distress.
Nasal cavity with minimal dried blood anteriorly.
Surgifoam dressing remains in place.
Scant bloody mucus.
No clots visible.
Mucosa with mild maceration and edema present.
Oral cavity and oropharynx clear.
Neck soft and supple.
[2023-04-22] VITALS (8 sets, daily range): BP systolic 94–127; BP diastolic 51–89
[2023-04-22] MEDS: OCEAN, SALINE MIST 2 SPRAYS NASAL ×2 (00:07→08:25)
[2023-04-22] MEDS: AFRIN NASAL SPRAY 2 SPRAYS NASAL (00:07)
[2023-04-22] MEDS: UNASYN IV ×2 (03:58→08:21)
[2023-04-22 04:43] LABS: Mean Corp Hgb Conc. 36.4 g/dL (33.0-37.0); Mean Corpuscular Hgb 34.8 pg (27.0-31.0); Platelet Count 146 10^3/uL (130-400); Red Cell Dist. Width 19.2 % (11.5-14.5); White Blood Cell Count 6.2 10^3/uL (4.8-10.8)
[2023-04-22 04:45] LABS: Mean Corpuscular Volume 95.7 fL (80.0-94.0)
[2023-04-22 04:53] LABS: ALT (SGPT) 68 U/L (0-50); AST (SGOT) 122 U/L (17-59); Albumin 2.7 g/dl (3.5-5.0); Alkaline Phosphatase 90 U/L (38-126); Blood Urea Nitrogen 6 mg/dl (9-20); Calcium 8.6 mg/dl (8.4-10.2); Carbon Dioxide 27 mmol/L (22-30); Chloride 103 mmol/L (98-107); Estimated Creatinine Clearance > 125 ml/min; Glucose 113 mg/dl (70-99); Potassium 3.1 mmol/L (3.5-5.1); Sodium 135 mmol/L (135-145); Total Bilirubin 0.4 mg/dl (0.2-1.3); Total Protein 4.9 g/dl (6.3-8.2); eGFR > 60.00
--- NOTE | 2023-04-22 05:47 | W.PN.UPDATE ---
Update Note
Progress Note Update
Morning labs: Potassium 3.1, order to replete with Potassium Chloride 40meq PO 1x now.
[2023-04-22] MEDS: KCL 40 MEQ PO (06:17)
[2023-04-22] MEDS: OMNIPAQUE 50 ML PO (07:11)
[2023-04-22] MEDS: AFRIN NASAL SPRAY 30 SPRAYS NASAL (08:24)
[2023-04-22 08:39] LABS: Magnesium 1.9 mg/dl (1.6-2.3); Phosphorus 4.7 mg/dl (2.5-4.5)
[2023-04-22] MEDS: KCL 270 MEQ IV (09:40)
[2023-04-22] MEDS: FOLVITE 1 MG PO (09:40)
[2023-04-22] MEDS: VITAMIN B-12 1000 MCG PO (09:40)
[2023-04-22] MEDS: VITAMIN B1 100 MG PO (10:54)
[2023-04-22] MEDS: PROTONIX 40 MG PO (10:54)
--- NOTE | 2023-04-22 11:25 | W.PN.HOSP.TC ---
Today's Communication/Plan
-
replete KCL
OP ENT f/u
Assessment / Plan
Assessment / Plan
42y M with PMH significant for alcohol use disorder who presents to ED for evaluation of nose bleed.
Severe Epistaxis - Bilateral
Acute blood loss anemia 2/2 above
-Application of ice / cold to area.
-Follow for any significant breakthrough bleeding.
-s/p removal of balloon packing. surgifoam with epi packing. started on nasal afrin and saline spray per ENT
- cont abx on dc.
-No lab evidence of coagulopathy - though suspect some degree of platelet dysfunction on basis of chronic alcoholism.
-Low iron and [id number] IV iron and po supplements. s/p 1U PRBC.
-OP ENT f/u
Daily Alcohol Use Disorder
Transaminitis secondary to above-resolved
- Last drink was SLIMER.
- Will monitor on MSAS protocol
- counseled on alcohol cessation.
Probably aspirated blood from epistaxis
-trend h.h. s/p PPI infusion.
-s/p EGD with Small superficial esophageal ulcer-doubt it is source of bleeding per GI
-ppi daily
-started on diet
-CT abdomen pelvis with no acute intra-abdominal process identified. Diverticulosis without diverticulitis.
-Sinus tachycardia likely multifactorial in the setting of blood loss anemia from recent access versus alcohol use disorder, dehydration
-DC IVF and encourage po intake.
-Trial low-dose Lopressor. hold further standing dose now. resolved.
Acute blood loss anemia multifactorial epistaxis and pulmonary suppression due to daily alcohol abuse
-Transfuse as needed for less than 7 hemoglobin
-Hgb at 8 s/p 1u PRBC
hyponatremia
monitor.resolved.
Hypokalemia
-replete/ monitor
DVT Prophylaxis: SCDs
Code Status: Full
updated spouse on 04/20.
More than 30 minutes spent in discharge including
Final examination of the patient
Summarizing hospital stay
Instructions for continuing care to all relevant caregivers
Preparation of discharge records, prescriptions, and referral forms
Total time spent (in minutes): 45
Anticipated Discharge: Today
Subjective/Interval History
-
Date of Service: April 22, 2023
Denies any further epistaxis
Denies abdominal pain
Denies any nausea vomiting
Tolerating diet
Objective Data
-
Labs:
Laboratory Results
04/22/23
04:09
WBC 6.2
Hgb 8.0 L
Hct 22.0 L
Plt Count 146
Sodium 135
Potassium 3.1 L
Chloride 103
Carbon Dioxide 27
BUN 6 L
Creatinine 0.5 L
Glucose 113 H
Calcium 8.6
Total Bilirubin 0.4
AST 122 H
ALT 68 H
Alkaline Phosphatase 90
Vital Signs:
Vital Signs
Temp Pulse Resp BP Pulse Ox
97.9 F 80 13 127/86 95
04/22/23 07:55 04/22/23 10:00 04/22/23 09:45 04/22/23 09:45 04/22/23 10:38
I&O
04/21/23 04/22/23 04/23/23
06:59 06:59 06:59
Intake Total 0 / 0 970 / 970 480 / 480
Balance 0 / 0 970 / 970 480 / 480
Physical Exam
-
General: Well Developed, Well Nourished and No Apparent Distress
HEENT: Ears Appear Normal
Respiratory: Clear to Auscultation
Cardiac: Regular Rhythm and S1/S2
GI: Soft, Nontender, Nondistended and Normal Bowel Sounds
Musculoskeletal: No Clubbing, No Cyanosis and No Edema
Skin: Warm and Dry; Negative Rash
Neuro: Awake, Alert, Oriented and AO x 3
Psych: Calm
--- NOTE | 2023-04-22 11:58 | W.DCSUMMARY ---
Discharge Summary
Discharge Data
Date of Admission: 04/19/23
Date of Discharge: 04/22/23
-
Pending Results: No
Hospital Course
40-gskm-[age]-year-old male past medical history of daily alcohol usage is presenting with severe epistaxis. Patient stated of severe epistaxis bilateral nostrils. States he had epistaxis in the past however this time it was worse. Patient was eval
by ENT and underwent balloon packing. Patient had also episode of melanotic stools. Patient underwent evaluation by gastroenterology and was PPI drip. EGD with small superficial esophagus ulcer. Most likely etiology patient aspirated blood from
epistaxis. Patient hemoglobin was trended he did require 1 unit of PRBC. Patient also with sinus tachycardia which was seen multifactorial in the setting of blood loss anemia and alcohol use disorder and dehydration. Patient with CT abdomen
pelvis today with acute intra-abdominal process. Patient was monitored on alcohol withdrawal protocol and seems to have stabilized for greater than 24 hours prior to discharge. Patient was tolerating diet without any difficulty. Patient did
receive antibiotics as with nasal packing which will be continued on discharge. Recommended to follow-up outpatient with ENT and gastroenterology. Patient was counseled on complete alcohol cessation.
Discharge Plan
-
Patient Disposition: Home (Routine Discharge)
Discharge Diagnosis/Procedures: Severe Epistaxis - Bilateral
acute blood loss anemia
blood transfusion
Transaminitis
Alcohol withdrawal
Sinus tachycardia
Hyponatremia
Hypokalemia
Condition: Fair
Diet: As tolerated
Activity: With assistance and As tolerated
Blood Work: CBC and CMP in 1 week with primary doctor.
Instructions: Alcohol Use Disorder (DC), Nosebleeds (DC)
Referrals:
Kaden Ramon MD [Family Provider] - in less than 1 week
Sandor Reyes MD [Active] - in three to four weeks
Leonard Torres MD [Active] - in one to two days (call to make appt. )
Prescriptions:
New
Saline Nasal 0.65 % Aerosol,[place]
2 spray intranasal QID 14 Days Qty: 44 0RF
cyanocobalamin (vitamin B-12) 1,000 mcg Tablet
1,000 mcg PO DAILY 30 Days Qty: 30 0RF
pantoprazole 40 mg Tablet,Delayed Release (Dr/Ec)
40 mg PO DAILY 30 Days Qty: 30 0RF
amoxicillin-pot clavulanate 875-125 mg tablet
1 tab PO BID Qty: 8 0RF
ferrous sulfate 325 mg (65 mg iron) tablet
325 mg PO DAILY Qty: 30 0RF
Discharge Orders:
Discharge Patient (As Directed); Ordered 04/22/23
Ordered By: Yared Agarwal
Discharge Date and Time
Discharge Date/Time: 04/22/23 13:15
--- NOTE | 2023-04-22 16:04 | CM ---
Spoke with patient who was preparing for discharge. The patient says he feels ready for discharge home today. He plans on driving himself home.
No CM d/c needs identified.
Plan home today.
== END 2023-04-22 13:15 | disposition home or self-care (01) | DRG 151 ==
LOC: IMU 01:34
PROVIDERS: Internal Medicine; ADMITTING PHYSICIAN Hospitalist; ATTENDING PHYSICIAN Hospitalist; CONSULT PHYSICIAN Internal Medicine Gastroenterology; CONSULT PHYSICIAN Otolaryngology; EMERGENCY PHYSICIAN Emergency Medicine; FAMILY PHYSICIAN Family Medicine
PROC: 0DJ08ZZ Inspection of Upper Intestinal Tract, Via Natural or Artificial Opening Endoscopic (ICD-10-PCS; 2023-04-20)
PROC: 30233N1 Transfusion of Nonautologous Red Blood Cells into Peripheral Vein, Percutaneous Approach (ICD-10-PCS; 2023-04-21)
DX: R04.0 Epistaxis (principal); F10.239 Alcohol dependence with withdrawal, unspecified; D62 Acute posthemorrhagic anemia; E87.1 Hypo-osmolality and hyponatremia; K22.10 Ulcer of esophagus without bleeding; K92.2 Gastrointestinal hemorrhage, unspecified; K92.0 Hematemesis; F17.200 Nicotine dependence, unspecified, uncomplicated; E87.6 Hypokalemia
CPT/HCPCS: 30901; 74177; 80048; 80053; 82077; 82607; 82728; 82746; 83540; 83550; 83735; 84100; 85014; 85018; 85025; 85027; 85610; 85730; 86850; 86900; 86901; 86920; 93005; 96361; 96365; 96366; 96367; 99285; 99406; J2916; P9016; Q9967

== ENCOUNTER 2023-12-02 06:55 | Day surgery (SDC) | payer OTHER, SELFPAY ==
[2023-12-02] VITALS (9 sets, daily range): BP systolic 123–154; BP diastolic 87–98; BMI 21.3
[2023-12-02] MEDS: NORMOSOL-R/PLASMALYTE-A 1000 IV (09:46)
[2023-12-02] MEDS: TYLENOL 1000 MG PO (09:46)
== END 2023-12-02 14:57 | disposition home or self-care (01) ==
LOC: SDS 06:55
PROVIDERS: ATTENDING PHYSICIAN Otolaryngology
DX: J31.0 Chronic rhinitis (principal); J34.89 Other specified disorders of nose and nasal sinuses
CPT/HCPCS: 31237; 30220

== ENCOUNTER 2024-02-04 09:25 | Emergency (ER) | payer OTHER, SELFPAY ==
[2024-02-04 09:26] VITALS: BP 146/95
[2024-02-04 10:14] VITALS: BP 121/89
--- NOTE | 2024-02-04 10:35 | ED.GENMED ---
History of Present Illness
General
Chief Complaint: Chest Pain
Source: patient
Exam Limitations: none
Time Seen by Provider: 02/04/24 10:07
History of Present Illness
History of Present Illness:
43-year-old male smoker presents with fatigue fogginess headache following episodes of vomiting and diarrhea 4 days ago. He is not left with pain to both sides of his upper back that is made worse with motion. He also notes that it is made worse
with deep breathing. He notes occasionally he is short of breath. He has been coughing but denies hemoptysis. He denies leg swelling or calf pain. No recent travel or surgery. The pain is deftly made worse with motion. He went to the urgent
care 2 days ago had an x-ray of his chest and was diagnosed with COPD. He also prescribed cyclobenzaprine and Zofran. He the medicine makes him drowsy as well.
Past History
Past History
ED Past Medical History: None
ED Past Surgical History: Orthopedic (Left hand surgery, left ankle surgery)
Social History
Tobacco: Smoker
Alcohol: Chronic alcoholic
Drug: None
Living: with family
Employment: Employed
Phy Exam
Physical Exam
Physical Exam:
General: Well-appearing male in no respiratory distress
HEENT: Normocephalic atraumatic
Heart: Regular rate and rhythm
Lungs: Clear no wheeze
Abdomen is soft nontender nondistended no guarding rebound normal bowel sounds
Musculoskeletal exam: Tenderness over the lower chest wall posterior laterally bilaterally
Remedies: No cyanosis or edema
Scores
Heart Score for Chest Pain Patients
STEMI patient?: No
History: Slightly or Non-Suspicious
ECG: Normal
Age: </= 45 years
Risk Factors: No Risk Factors
Troponin: </= Normal Limit
Heart Score for Chest Pain Patients: 0
Heart Score Risk: 2.5% MACE over next 6 weeks
Course
Orders/Labs/Results
Orders:
Orders
02/04/24 09:29
EKG [Electrocardiogram (*1)] Urgent
Reason for Study: Chest Pain
EKG- Treatment ONCE
02/04/24 10:29
0.9% Sodium Chloride 1000 ml [Nss] 1,000 ml IV BOLUS
02/04/24 10:35
CPK [Creatine Phosphokinase] Urgent
Complete Blood Count/With Diff Urgent
Comprehensive Metabolic Panel Urgent
D-Dimer Urgent
Lipase Urgent
Troponin I Urgent
02/04/24 11:02
Ketorolac [Toradol] 15 mg IV NOW STA
02/04/24 11:19
US Abdomen Complete/Upper Urgent
Comment:
Reason For Exam: elevated LFT, flank pain
02/04/24 11:39
Urinalysis Reflex To Culture Urgent
Date Specimen was Collected: 02/04/24
Time Specimen was Collected: 11:35
02/04/24 11:49
diazePAM [Valium Injection] 5 mg IV NOW STA
Abnormal Lab Results
02/04/24
10:35
RBC 3.81 L 10^6/uL
(4.70-6.10)
MCV 105.2 H fL
(80.0-94.0)
MCH 36.7 H pg
(27.0-31.0)
Lymphocytes % 19.6 L %
(20.5-51.1)
Potassium 3.3 L mmol/L
(3.5-5.1)
Chloride 95 L mmol/L
(98-107)
Carbon Dioxide 35 H mmol/L
(22-30)
AST 82 H U/L
(17-59)
ALT 54 H U/L
(0-50)
Alkaline Phosphatase 177 H U/L
(38-126)
Lipase 357 H U/L
(23-300)
02/04/24 10:35
02/04/24 10:35
Vital Signs
Initial and Last Documented VS:
Initial Vital Signs
Temp Pulse Resp BP Pulse Ox
99.3 F 102 20 146/95 100
02/04/24 09:26 02/04/24 09:26 02/04/24 09:26 02/04/24 09:26 02/04/24 09:26
Last Documented Vital Signs
Temp Pulse Resp BP Pulse Ox
99.3 F 83 19 144/104 99
02/04/24 09:26 02/04/24 14:09 02/04/24 14:09 02/04/24 14:09 02/04/24 11:15
MDM/Problems Addressed
Differential Diagnosis Includes:
Patient with mid back pain pleuritic in nature made worse with motion question musculoskeletal flank pain versus PE versus dehydration versus electrolyte abnormality. Pain is both sides do not renal colic
Will check labs including CPK D-dimer troponin. EKG through triage shows sinus rhythm. Hydration ordered.
*Critical Care Note
Total Time (30-74mins, 75-104mins- exclusive of procedures): Not Applicable
Update Note
Update Note:
D-dimer normal limits ultrasound abdomen was ordered secondary to elevated liver functions. This was negative for acute findings. Patient does admit to drinking alcohol frequently and regularly. Patient feeling somewhat better after Toradol and
Valium here I suspect muscular strain. Recommended continued use of anti-inflammatories and muscle relaxers at home. Stable for discharge
ED Attending Note
-
Portions of this chart may have been created with voice recognition software.� Occasional wrong word or��sound alike� substitutions may have occurred due to the inherent limitations of voice recognition software.
Discharge Plan
Departure
Patient Disposition: Home (Routine Discharge)
Date of Disposition: 02/04/24
Time of Disposition: 14:29
Patient with high blood pressure during this ER visit?: No
Discharge Problem:
Back pain
Instructions: Back Pain
Prescriptions:
No Action
ferrous sulfate 325 mg (65 mg iron) tablet
325 mg PO Q48H
Saline Nasal 0.65 % aerosol,spray
2 spray intranasal QID PRN (Reason: dryness)
Referrals:
Kaden Ramon MD [Family Provider] -
Stand Alone Forms: Return to Work
Activity Restrictions/Additional Instructions:
Drink plenty fluids. Continue with warm compresses. Continue with muscle relaxer. Return for worsening symptoms otherwise follow-up with your doctor
Interventions
Interventions:
*Risk Screen - Suicide Last Done: 02/04/24 09:26
*Neglect/Abuse Screening Last Done: 02/04/24 09:26
ED- Fall Risk Assessment Last Done: 02/04/24 10:11
*ED COVID-19 Vaccine History Last Done: 02/04/24 10:11
ED- Cardiac Assessment Last Done: 02/04/24 10:11
Discharge Date and Time
Print Language: [id number]
[2024-02-04] MEDS: NSS 1000 IV (10:41)
[2024-02-04 10:44] LABS: % Basophils 0.3 % (0-2); % Eosinophils 2.5 % (0-6); % Immature Granulocytes 0.4 % (0-0.5); % Lymphocytes 19.6 % (20.5-51.1); % Monocytes 6.6 % (1.7-9.3); % Neutrophils 70.6 % (42.2-75.2); Absolute Eosinophils 0.2 10^3/uL (0-0.7); Absolute Lymphocytes 1.8 10^3/uL (1.2-3.4); Absolute Monocytes 0.6 10^3/uL (0.1-0.6); Absolute Neutrophils 6.5 10^3/uL (1.4-6.5); Hematocrit 40.1 % (39.0-52.0); Mean Corp Hgb Conc. 34.9 g/dL (33.0-37.0); Mean Corpuscular Hgb 36.7 pg (27.0-31.0); Mean Corpuscular Volume 105.2 fL (80.0-94.0); Mean Platelet Volume 9.6 fL (7.4-10.4); Nucleated Red Blood Cells % 0 % (-); Platelet Count 146 10^3/uL (130-400); Red Blood Cell Count 3.81 10^6/uL (4.70-6.10); White Blood Cell Count 9.2 10^3/uL (4.8-10.8)
[2024-02-04 11:00] VITALS: BP 130/89
[2024-02-04 11:00] LABS: ALT (SGPT) 54 U/L (0-50); AST (SGOT) 82 U/L (17-59); Albumin 4.2 g/dl (3.5-5.0); Alkaline Phosphatase 177 U/L (38-126); Blood Urea Nitrogen 13 mg/dl (9-20); Calcium 9.5 mg/dl (8.4-10.2); Carbon Dioxide 35 mmol/L (22-30); Chloride 95 mmol/L (98-107); Creatine Phosphokinase 123 U/L (55-170); Glucose 95 mg/dl (70-99); Lipase 357 U/L (23-300); Potassium 3.3 mmol/L (3.5-5.1); Sodium 138 mmol/L (135-145); Total Bilirubin 0.4 mg/dl (0.2-1.3); Total Protein 6.9 g/dl (6.3-8.2); eGFR > 60.00
[2024-02-04] MEDS: TORADOL 15 MG IV (11:09)
[2024-02-04 11:12] LABS: Troponin I < 0.012 ng/ml
[2024-02-04 11:50] LABS: Urine Albumin Negative (Neg - Trace); Urine Bilirubin Negative (Negative); Urine Character Clear (Clear); Urine Color Yellow; Urine Glucose Negative (Negative); Urine Ketone Negative (Negative); Urine Leukocyte Negative (Negative); Urine Nitrite Negative (Negative); Urine Occult Blood Negative (Negative); Urine Urobilinogen Negative (Neg - 1+)
[2024-02-04] MEDS: VALIUM INJECTION 5 MG IV (12:55)
[2024-02-04 13:00] VITALS: BP 143/85
[2024-02-04 14:09] VITALS: BP 144/104
== END 2024-02-04 14:40 | disposition home or self-care (01) ==
LOC: EMR 09:25
PROVIDERS: Physician Assistant; EMERGENCY PHYSICIAN Emergency Medicine; FAMILY PHYSICIAN Family Medicine
DX: M54.9 Dorsalgia, unspecified (principal); F17.200 Nicotine dependence, unspecified, uncomplicated; J44.9 Chronic obstructive pulmonary disease, unspecified
CPT/HCPCS: 99284; 96374; 96375; 96361; 76700; 80053; 81003; 82550; 83690; 84484; 85025; 85379; 93005

== ENCOUNTER 2024-11-09 13:06 | Emergency (ER) | payer OTHER, SELFPAY ==
[2024-11-09] VITALS (9 sets, daily range): BP systolic 121–146; BP diastolic 86–106; BMI 20.8
[2024-11-09] MEDS: NSS 1000 IV (14:40)
[2024-11-09] MEDS: VALIUM INJECTION 2 MG IV ×2 (14:40→18:14)
[2024-11-09 15:01] LABS: Hematocrit 36.3 % (39.0-52.0); Hemoglobin 12.8 g/dL (13.0-18.0); Mean Corp Hgb Conc. 35.3 g/dL (33.0-37.0); Mean Corpuscular Volume 100.8 fL (80.0-94.0); Nucleated Red Blood Cells % 0 % (-); Platelet Count 136 10^3/uL (130-400); Red Cell Dist. Width 12.1 % (11.5-14.5)
[2024-11-09 15:09] LABS: INR 0.99; PT 13.6 Sec (11.4-14.6)
[2024-11-09 15:10] LABS: APTT 26.8 Sec (23.4-35.0)
--- NOTE | 2024-11-09 15:35 | ED.GENMED ---
History of Present Illness
General
Chief Complaint: Alcohol Problem
Time Seen by Provider: 11/09/24 14:00
History of Present Illness
History of Present Illness:
44-year-old male with history of colitis and alcohol abuse presenting for alcohol abuse, seeking inpatient rehabilitation. Patient notes that he is a heavy drinker, last drink this morning. He has been tapering down for the past 3 days. Initially
went to his primary care doctor who advised that he come to the hospital. Denies present chest pain, difficulty breathing, abdominal pain. Notes some generalized shakiness. His primary care doctor was concerned about a GI bleed, which she has had
in the past due to his colitis. However patient denies any blood in his stool. Does report about 2 weeks ago he had 1 episode of dark stool which has resolved. Denies fever or recent illness. Denies any prior inpatient detoxes. Denies
withdrawal his seizure history. Denies additional acute medical complaints
Past History
Past History
ED Past Medical History: None
ED Past Surgical History: Orthopedic (Left hand surgery, left ankle surgery)
Social History
Tobacco: Smoker
Alcohol: Chronic alcoholic
Drug: None
Living: with family
Employment: Employed
Phy Exam
Physical Exam
Physical Exam:
General: Well-appearing, no clinical signs of dehydration, nontoxic and in no acute distress
HEENT: protecting airway
Neck: appears supple
CV: Normal heart rate, regular rhythm
Resp: No accessory muscle use, no increased work of breathing
Abd: Soft and non-distended, no tenderness to palpation
Extremities: No deformities, no swelling
Neuro: alert, no focal neurologic deficit
: deferred
Rectal: deferred
Psych: Normal affect
Skin: Intact
Scores
Withdrawal Assessment of Alcohol
Withdrawal Assessment Completed?: Yes
Nausea and Vomiting: No nausea and no vomiting
Tactile Disturbances: None
Tremor: Not visible, but can be felt fingertip to fingertip
Auditory Disturbances: Not present
Paroxysmal Sweats: No sweat visible
Visual Disturbances: Not present
Anxiety: Mild anxiety
Headache, Fullness in Head: Not present
Agitation: Normal activity
Orientation and clouding of sensorium: Oriented and can do serial additions
Total CIWA Score: 2
Alcohol Withdrawal Medication Recommendation: Equal to MSAS Score 0-4. Monitor & re-assess q2hrs, NO MEDICATION NEEDED
Course
Orders/Labs/Results
Orders:
Orders
11/09/24 14:30
Urinalysis Reflex To Culture Urgent
Date Specimen was Collected: 11/09/24
Time Specimen was Collected: 14:36
0.9% Sodium Chloride 1000 ml [Nss] 1,000 ml IV BOLUS
diazePAM [Valium Injection] 2 mg IV NOW STA
11/09/24 14:32
Electrocardiogram (*1) Stat
Reason for Study: Other
Other Reason for Exam: overdose
EKG- Treatment ONCE
11/09/24 14:43
Acetaminophen Urgent
Alcohol Urgent
Complete Blood Count/With Diff Urgent
Comprehensive Metabolic Panel Urgent
Fentanyl, Urine Urgent
PTT Urgent
Prothrombin Time Urgent
Urine Drug Abuse Screen Urgent
Date Specimen was Collected: 11/09/24
Time Specimen was Collected: 14:37
Abnormal Lab Results
11/09/24
14:43
RBC 3.60 L 10^6/uL
(4.70-6.10)
Hgb 12.8 L g/dL
(13.0-18.0)
Hct 36.3 L %
(39.0-52.0)
MCV 100.8 H fL
(80.0-94.0)
MCH 35.6 H pg
(27.0-31.0)
Absolute Neuts (auto) 7.0 H 10^3/uL
(1.4-6.5)
Lymphocytes % 17.6 L %
(20.5-51.1)
Sodium 134 L mmol/L
(135-145)
Potassium 3.1 L mmol/L
(3.5-5.1)
Carbon Dioxide 32 H mmol/L
(22-30)
BUN 6 L mg/dl
(9-20)
Creatinine 0.5 L mg/dL
(0.7-1.3)
Glucose 106 H mg/dl
(70-99)
AST 150 H U/L
(17-59)
ALT 85 H U/L
(0-50)
Alkaline Phosphatase 191 H U/L
(38-126)
Acetaminophen < 10 L ug/ml
(10-30)
U Benzodiazepines Scrn Positive H
(Negative)
U Marijuana (THC) Screen Positive H
(Negative)
11/09/24 14:43
11/09/24 14:43
Vital Signs
Initial and Last Documented VS:
Initial Vital Signs
Temp Pulse Resp BP Pulse Ox
98.3 F 105 20 130/86 99
11/09/24 13:10 11/09/24 13:10 11/09/24 13:10 11/09/24 13:10 11/09/24 13:10
Last Documented Vital Signs
Temp Pulse Resp BP Pulse Ox
98.3 F 94 19 128/104 98
11/09/24 13:10 11/09/24 15:15 11/09/24 15:15 11/09/24 15:00 11/09/24 15:36
MDM/Problems Addressed
MDM/Problems Addressed:
44-year-old male with history of alcohol abuse presenting for for EtOH detox and rehabilitation. Vital signs are normal.
On exam patient is resting comfortably, no acute distress or discomfort. Slightly tremulous, however otherwise no significant signs of severe withdrawal. Withdrawal score is 2. No present concerns for GI bleed. Patient denying any vomiting or
blood in stool. Will screen with laboratory analysis and start patient on benzodiazepines. Will discuss with MIKE.
15:45 - Patient's labs are unremarkable. Normal hemoglobin, without concern for any underlying bleeding. Liver enzymes appear to be at baseline. Suspect elevation from chronic EtOH abuse. Feel medically clear for psychiatric assessment. EKG shows
slightly prolonged QTc. Will continue to monitor, holding QTc prolonging agent
*Pulse Oximetry
SaO2: 98
Oxygen Mode of Delivery: Room air
Patient hypoxic: no
*EKG
Interpreted by ED Provider?: Yes
EKG Intrepretation Date: 11/09/24
EKG Intrepretation Time: 15:46
Interpretation: abnormal
Comparison EKG: no changes
Heart Rate: 96
Rate: normal
Rhythm: sinus
[place]: normal axis
Interval: long QT
QRS Pattern: normal QRS
Ischemia: no ischemia
*Critical Care Note
Total Time (30-74mins, 75-104mins- exclusive of procedures): Not Applicable
ED Attending Note
-
Portions of this chart may have been created with voice recognition software.� Occasional wrong word or��sound alike� substitutions may have occurred due to the inherent limitations of voice recognition software.
Discharge Plan
Departure
Patient Disposition: Acute Rehab Facility
Date of Disposition: 11/09/24
Time of Disposition: 16:01
Patient with high blood pressure during this ER visit?: No
Condition: Good
Discharge Problem:
Alcohol abuse
Instructions: Alcohol Use Disorder (DC)
Prescriptions:
No Action
ferrous sulfate 325 mg (65 mg iron) tablet
325 mg PO Q48H
Saline Nasal 0.65 % aerosol,spray
2 spray intranasal QID PRN (Reason: dryness)
Referrals:
UNKNOWN,NO INTERVIEW [Family Provider]
Activity Restrictions/Additional Instructions:
You are medically clear for alcohol detox program
Interventions
Interventions:
*Risk Screen - Suicide Last Done: 11/09/24 13:10
*General Assessment Last Done: 11/09/24 13:10
ED- Neurological Assessment Last Done: 11/09/24 14:53
ED-Psychological Assessment Last Done: 11/09/24 14:53
Discharge Date and Time
Print Language: YORUBA
[2024-11-09 15:44] LABS: Albumin 4.0 g/dl (3.5-5.0); Alkaline Phosphatase 191 U/L (38-126); Blood Urea Nitrogen 6 mg/dl (9-20); Calcium 9.1 mg/dl (8.4-10.2); Carbon Dioxide 32 mmol/L (22-30); Chloride 98 mmol/L (98-107); Estimated Creatinine Clearance > 125 ml/min; Glucose 106 mg/dl (70-99); Potassium 3.1 mmol/L (3.5-5.1); Sodium 134 mmol/L (135-145); Total Protein 7.1 g/dl (6.3-8.2); eGFR > 60.00
[2024-11-09 15:45] LABS: ALT (SGPT) 85 U/L (0-50); AST (SGOT) 150 U/L (17-59); Acetaminophen < 10 ug/ml (10-30)
[2024-11-09 17:09] LABS: Urine Character Clear (Clear)
[2024-11-09 17:27] LABS: Urine Red Blood Cell 0-2 /HPF (0-2)
== END 2024-11-09 20:03 ==
LOC: EMR 13:06
PROVIDERS: EMERGENCY PHYSICIAN Student in an Organized Health Care Education/Training Program
DX: F10.10 Alcohol abuse, uncomplicated (principal); F17.200 Nicotine dependence, unspecified, uncomplicated
CPT/HCPCS: 99283; 80053; 80143; 80306; 80307; 81003; 81015; 82077; 85025; 85610; 85730; 87086; 93005